=== PATIENT | female | born 1980 | race Hispanic/Latino ===

== ENCOUNTER 2018-02-09 23:33 | Emergency (ER) | payer SELFPAY ==
[~2018-02-09] VITALS: Ht 152.4 cm; Wt 59.0 kg
[~2018-02-09 23:33] MED LIST: AMITRIPTYLINE H25 MG PO; GABAPENTIN100 MG PO; LYRICA50 MG PO; TYLENOL WITH C1 EACH PO; ULTRAM 50MG50 MG PO
== END 2018-02-10 01:36 | disposition left against medical advice (07) ==
LOC: ER 23:33
DX: M26.621 Arthralgia of right temporomandibular joint (principal)

== ENCOUNTER 2021-08-30 10:28 | Emergency (ER) | payer SELFPAY ==
[~2021-08-30] VITALS: Ht 152.4 cm; Wt 59.0 kg
[2021-08-30] MEDS ORDERED: SODIUM CHLORIDE 0.9% 1000ML 1,000 ML IV STA (10:56)
[2021-08-30] MEDS ORDERED: ONDANSETRON HCL INJ 2MG/ML 2ML 2 MG/ML VIAL IV STA (10:56)
[2021-08-30] MEDS ORDERED: Morphine 2mg Syringe 2 MG/ML SYR IV STA (10:56)
[2021-08-30 11:17] LABS: BASOPHILS % 0.4 % (0.0-1.0); EOSINOPHILS # (AUTO) 0.2 (0.0-0.4); EOSINOPHILS % 1.6 % (0.0-6.0); HEMATOCRIT 41.4 % (34.2-44.1); HEMOGLOBIN 13.8 g/dL (12.0-16.0); LYMPHOCYTES # (AUTO) 3.5 (1.0-3.2); LYMPHOCYTES % 30.8 % (18.0-39.1); MEAN CORPUSCULAR HGB CONC 33.3 g/dL (31-35); MONOCYTES # (AUTO) 0.9 (0.2-0.8); MONOCYTES % 7.6 % (4.4-11.3); NEUTROPHILS # (AUTO) 6.7 (2.1-6.9); NEUTROPHILS % 59.3 % (38.7-80.0); PLATELET COUNT 291 x10e3/uL (140-360); RED BLOOD COUNT 4.45 x10e6/uL (3.6-5.1); RED CELL DISTRIBUTION WIDTH 13.9 % (11.7-14.4)
[2021-08-30] MEDS ORDERED: SODIUM CHLORIDE 0.9% 50ML 50 ML ONE (11:23)
[2021-08-30] MEDS ORDERED: IOPAMIDOL 370 MG/ML 200 ML INFUS..BTL INJ ONE (11:23)
[2021-08-30] MEDS ORDERED: DIATRIZOATE MEGL/DIATRIZOA SOD 30 ML BTL PO ONE (11:23)
[2021-08-30 11:45] LABS: INR 0.9
[2021-08-30 11:49] LABS: CLARITY,URINE CLEAR (CLEAR); COLOR,URINE YELLOW (YELLOW); KETONES,URINE NEGATIVE (NEGATIVE); LEUKOCYTE ESTERASE ,URINE NEGATIVE (NEGATIVE); NITRITE,URINE NEGATIVE (NEGATIVE); PROTEIN,URINE DIPSTICK NEGATIVE (NEGATIVE); URINE UROBILINOGEN 0.2 mg/dL (0.2 - 1)
[2021-08-30 11:53] LABS: ALANINE AMINOTRANSFERASE 31 IU/L (0-55); ALBUMIN 4.1 g/dL (3.5-5.0); ALBUMIN/GLOBULIN RATIO 1.2 (0.8-2.0); ALKALINE PHOSPHATASE 73 IU/L (40-150); AMYLASE 82 U/L (25-125); ANION GAP 10.2 mmol/L (8-16); BLOOD UREA NITROGEN 10 mg/dL (7-26); BUN/CREATININE RATIO 15 (6-25); CALCIUM 9.2 mg/dL (8.4-10.2); CARBON DIOXIDE 21 mmol/L (22-29); CHLORIDE 114 mmol/L (98-107); CREATINE KINASE 136 IU/L (29-168); CREATININE, SERUM 0.67 mg/dL (0.57-1.11); EST GLOMERULAR FILTRATION RATE 97 ML/MIN (60-); GLUCOSE 100 mg/dL (74-118); LIPASE 32 U/L (8-78); POTASSIUM 4.2 mmol/L (3.5-5.1); SODIUM 141 mmol/L (136-145)
[2021-08-30 11:59] LABS: BACTERIA,URINE MODERATE /HPF; EPITHELIAL CELLS,URINE MANY /LPF; RBC,URINE 0-5 /HPF (0-5)
[2021-08-30] MEDS ORDERED: Morphine 4mg Syringe 4 MG/ML INJ IV STA (12:51)
[2021-08-30 13:44] LABS: AMPHETAMINES SCREEN,URINE NEGATIVE (NEGATIVE); BENZODIAZEPINES SCREEN,URINE NEGATIVE (NEGATIVE); PHENCYCLIDINE SCREEN,URINE NEGATIVE (NEGATIVE)
== END 2021-08-30 14:19 | disposition home or self-care (01) ==
LOC: ER 10:38
DX: K59.00 Constipation, unspecified (principal); R10.12 Left upper quadrant pain; M06.9 Rheumatoid arthritis, unspecified; Z20.822 Contact with and (suspected) exposure to COVID-19
CPT/HCPCS: 36415; 71045; 74177; 80053; 80307; 81001; 82150; 82550; 82553; 83605; 83690; 84484; 84702; 85025; 85610; 85730; 87040; 87086; 99284; C9113; J2270 ×2; J2405; J7030; Q9967; U0002

== ENCOUNTER 2022-02-08 15:54 | Inpatient (IN) | payer SELFPAY ==
[~2022-02-08] VITALS: Ht 152.4 cm; Wt 59.0 kg
[2022-02-08] MEDS ORDERED: KETOROLAC TROMETHAMINE 30 MG/ML VIAL IV STA (16:34)
[2022-02-08] MEDS ORDERED: ONDANSETRON HCL INJ 2MG/ML 2ML 2 MG/ML VIAL IV STA (16:34)
[2022-02-08] MEDS ORDERED: SODIUM CHLORIDE 0.9% IV SCH (16:45)
[2022-02-08 17:06] LABS: BASOPHILS % 0.1 % (0.0-1.0); HEMATOCRIT 43.9 % (34.2-44.1); HEMOGLOBIN 14.3 g/dL (12.0-16.0); LYMPHOCYTES # (AUTO) 0.9 (1.0-3.2); LYMPHOCYTES % 5.7 % (18.0-39.1); MEAN CORPUSCULAR HEMOGLOBIN 31.1 pg (28-32); MEAN CORPUSCULAR HGB CONC 32.6 g/dL (31-35); MEAN CORPUSCULAR VOLUME 95.4 fL (81-99); MONOCYTES # (AUTO) 1.1 (0.2-0.8); MONOCYTES % 6.7 % (4.4-11.3); NEUTROPHILS # (AUTO) 14.3 (2.1-6.9); NEUTROPHILS % 87.1 % (38.7-80.0); PLATELET COUNT 378 x10e3/uL (140-360); RED CELL DISTRIBUTION WIDTH 14.1 % (11.7-14.4)
[2022-02-08] MEDS ORDERED: CEFTRIAXONE 1 GM VIAL IV ONE (17:15)
[2022-02-08 17:21] LABS: ALANINE AMINOTRANSFERASE 41 IU/L (0-55); ALBUMIN 3.8 g/dL (3.5-5.0); ALBUMIN/GLOBULIN RATIO 0.8 (0.8-2.0); ALKALINE PHOSPHATASE 135 IU/L (40-150); ANION GAP 16.4 mmol/L (8-16); BLOOD UREA NITROGEN 7 mg/dL (7-26); BUN/CREATININE RATIO 9 (6-25); CALCIUM 9.2 mg/dL (8.4-10.2); CARBON DIOXIDE 23 mmol/L (22-29); CHLORIDE 103 mmol/L (98-107); CREATININE, SERUM 0.79 mg/dL (0.57-1.11); GLUCOSE 121 mg/dL (74-118); LIPASE 24 U/L (8-78); POTASSIUM 4.4 mmol/L (3.5-5.1); SODIUM 138 mmol/L (136-145)
[2022-02-08] MEDS ORDERED: SODIUM CHLORIDE 0.9% 1000ML 1,000 ML IV ONE (17:30)
[2022-02-08] MEDS ORDERED: CEFTRIAXONE 1 GM in SODIUM CHLORIDE 0.9% 100 ML IV ONE (17:30)
[2022-02-08 17:53] LABS: BACTERIA,URINE MANY /HPF; EPITHELIAL CELLS,URINE FEW /LPF; RBC,URINE 21-50 /HPF (0-5); WBC,URINE (MAN) >50 /HPF (0-5)
[2022-02-08 17:54] LABS: CLARITY,URINE CLOUDY (CLEAR); COLOR,URINE YELLOW (YELLOW); KETONES,URINE 1+ (NEGATIVE); LEUKOCYTE ESTERASE ,URINE LARGE (NEGATIVE); NITRITE,URINE POSITIVE (NEGATIVE); PROTEIN,URINE DIPSTICK 2+ (NEGATIVE); URINE UROBILINOGEN 0.2 mg/dL (0.2 - 1)
[2022-02-08] MEDS ORDERED: ACETAMINOPHEN 325 MG TAB PO ONE (18:15)
[2022-02-08] MEDS ORDERED: IOPAMIDOL 300MG/ML 100 ML INFUS..BTL IV ONE (18:43)
[2022-02-08] MEDS ORDERED: FENTANYL CITRATE/PF 100MCG/2 ML INJ IV ONE (19:15)
[2022-02-08] MEDS: SODIUM CHLORIDE 0.9% 1000ML 1,000 ML IV SCH (19:23)
[2022-02-08] MEDS ORDERED: ONDANSETRON HCL INJ 2MG/ML 2ML 2 MG/ML VIAL IV PRN (20:30)
[2022-02-08] MEDS ORDERED: Morphine 2mg Syringe 2 MG/ML SYR IV PRN (20:30)
[2022-02-08 23:00] VITALS: BP 126/82
[2022-02-08 23:26] VITALS: BP 126/82
[2022-02-08] MEDS: Morphine 4mg INJECTION 4 MG/ML INJ IV PRN (23:26)
[2022-02-08] MEDS ORDERED: DEXTROSE 50% SYRINGE 50 ML IV PRN (23:45)
[2022-02-08] MEDS ORDERED: BENZONATATE 100 MG CAP PO PRN (23:45)
[2022-02-08] MEDS ORDERED: DOCUSATE SODIUM 100 MG CAP PO PRN (23:45)
[2022-02-08] MEDS ORDERED: HYDRALAZINE HCL 20 MG/ML VIAL IV PRN (23:45)
[2022-02-08] MEDS ORDERED: ALBUTEROL/IPRATROPIUM 3 ML NEB NEB PRN (23:45)
[2022-02-08] MEDS ORDERED: SIMETHICONE 80 MG CHEW PO PRN (23:45)
[2022-02-08] MEDS ORDERED: LIDOCAINE 4% PATCH TP PRN (23:45)
[2022-02-08] MEDS ORDERED: POTASSIUM CHLORIDE 20 MEQ TAB CR PO PRN (23:45)
[2022-02-08] MEDS ORDERED: DIPHENHYDRAMINE HCL 25 MG CAP PO PRN (23:45)
[2022-02-08] MEDS ORDERED: ACETAMINOPHEN 325 MG TAB PO PRN (23:45)
[2022-02-08] MEDS ORDERED: MELATONIN 5 MG TABLET PO PRN (23:45)
[2022-02-08] MEDS: MIDODRINE HCL 5 MG TABLET PO SCH (23:54)
[2022-02-09] VITALS (7 sets, daily range): BP systolic 98–138; BP diastolic 58–91
[2022-02-09] MEDS: KETOROLAC TROMETHAMINE 30 MG/ML VIAL IV PRN ×2 (01:26→08:40)
[2022-02-09] MEDS: ACETAMINOPHEN 325 MG TAB PO PRN ×3 (01:27→18:58)
[2022-02-09] MEDS: SODIUM CHLORIDE 0.9% 1000ML 1,000 ML IV SCH ×3 (03:35→19:41)
[2022-02-09] MEDS: MIDODRINE HCL 5 MG TABLET PO SCH ×3 (05:08→21:15)
[2022-02-09] MEDS: Morphine 4mg INJECTION 4 MG/ML INJ IV PRN ×6 (05:08→23:46)
[2022-02-09 05:14] LABS: BASOPHILS % 0.2 % (0.0-1.0); EOSINOPHILS % 0.1 % (0.0-6.0); HEMATOCRIT 34.1 % (34.2-44.1); HEMOGLOBIN 11.4 g/dL (12.0-16.0); LYMPHOCYTES # (AUTO) 1.6 (1.0-3.2); LYMPHOCYTES % 8.7 % (18.0-39.1); MEAN CORPUSCULAR HEMOGLOBIN 31.1 pg (28-32); MEAN CORPUSCULAR HGB CONC 33.4 g/dL (31-35); MEAN CORPUSCULAR VOLUME 92.9 fL (81-99); MONOCYTES # (AUTO) 2.2 (0.2-0.8); MONOCYTES % 11.7 % (4.4-11.3); NEUTROPHILS # (AUTO) 14.9 (2.1-6.9); NEUTROPHILS % 78.7 % (38.7-80.0); PLATELET COUNT 277 x10e3/uL (140-360); RED BLOOD COUNT 3.67 x10e6/uL (3.6-5.1); RED CELL DISTRIBUTION WIDTH 14.3 % (11.7-14.4)
[2022-02-09 05:31] LABS: ALBUMIN 2.7 g/dL (3.5-5.0); ALBUMIN/GLOBULIN RATIO 0.8 (0.8-2.0); CALCIUM 7.8 mg/dL (8.4-10.2); CREATININE, SERUM 0.71 mg/dL (0.57-1.11)
[2022-02-09] MEDS: PANTOPRAZOLE SOD 40 MG TABEC PO SCH (08:41)
[2022-02-09] MEDS: KETOROLAC TROMETHAMINE 30 MG/ML VIAL IV SCH ×2 (13:25→17:18)
[2022-02-09 14:50] LABS: AMPHETAMINES SCREEN,URINE NEGATIVE (NEGATIVE); PHENCYCLIDINE SCREEN,URINE NEGATIVE (NEGATIVE)
[2022-02-09 14:52] LABS: BENZODIAZEPINES SCREEN,URINE POSITIVE (NEGATIVE)
[2022-02-09] MEDS: ENOXAPARIN SOD INJ 40 MG/0.4 ML SYR SC SCH (16:44)
[2022-02-09] MEDS ORDERED: Vancomycin IV 1 GM in SODIUM CHLORIDE 0.9% 250ML 250 ML IV ONE (17:30)
[2022-02-09] MEDS ORDERED: FLUCONAZOLE 100 MG TAB PO ONE (19:10)
[2022-02-09] MEDS: HYDROCODONE/APAP 5MG-325MG TAB PO PRN (19:41)
[2022-02-10] MEDS: KETOROLAC TROMETHAMINE 30 MG/ML VIAL IV SCH ×2 (00:44→06:00)
[2022-02-10 01:02] VITALS: BP 100/88
[2022-02-10] MEDS: Morphine 4mg INJECTION 4 MG/ML INJ IV PRN ×5 (01:18→14:09)
[2022-02-10] MEDS: SODIUM CHLORIDE 0.9% 1000ML 1,000 ML IV SCH ×2 (03:53→10:39)
[2022-02-10 04:00] VITALS: BP 114/67
[2022-02-10 05:34] LABS: BASOPHILS # (AUTO) 0.1 (0.0-0.1); BASOPHILS % 0.3 % (0.0-1.0); EOSINOPHILS # (AUTO) 0.1 (0.0-0.4); EOSINOPHILS % 0.6 % (0.0-6.0); HEMATOCRIT 33.2 % (34.2-44.1); HEMOGLOBIN 10.9 g/dL (12.0-16.0); LYMPHOCYTES % 11.7 % (18.0-39.1); MEAN CORPUSCULAR HEMOGLOBIN 30.6 pg (28-32); MEAN CORPUSCULAR HGB CONC 32.8 g/dL (31-35); MEAN CORPUSCULAR VOLUME 93.3 fL (81-99); MONOCYTES # (AUTO) 1.9 (0.2-0.8); MONOCYTES % 10.9 % (4.4-11.3); NEUTROPHILS % 75.7 % (38.7-80.0); PLATELET COUNT 232 x10e3/uL (140-360); RED BLOOD COUNT 3.56 x10e6/uL (3.6-5.1); RED CELL DISTRIBUTION WIDTH 14.3 % (11.7-14.4)
[2022-02-10] MEDS: MIDODRINE HCL 5 MG TABLET PO SCH ×3 (05:56→22:00)
[2022-02-10 06:01] LABS: ANION GAP 12.8 mmol/L (8-16); CALCIUM 7.7 mg/dL (8.4-10.2); CREATININE, SERUM 0.59 mg/dL (0.57-1.11); POTASSIUM 3.8 mmol/L (3.5-5.1)
[2022-02-10] MEDS: PANTOPRAZOLE SOD 40 MG TABEC PO SCH (08:40)
[2022-02-10] MEDS: HYDROCODONE/APAP 5MG-325MG TAB PO PRN (08:40)
[2022-02-10 09:00] VITALS: BP 152/97
[2022-02-10] MEDS: ACETAMINOPHEN 325 MG TAB PO PRN (10:11)
[2022-02-10] MEDS ORDERED: ONDANSETRON HCL 4 MG ORAL DISINTEGRATING TAB PO PRN (11:15)
[2022-02-10 11:40] VITALS: BP 112/63
[2022-02-10] MEDS ORDERED: PHENAZOPYRIDINE HCL 100 MG TAB PO PRN (12:45)
[2022-02-10] MEDS: CEFTRIAXONE 2 GM in SODIUM CHLORIDE 0.9% 100 ML IV SCH (13:00)
[2022-02-10 16:29] VITALS: BP 105/66
[2022-02-10] MEDS: ENOXAPARIN SOD INJ 40 MG/0.4 ML SYR SC SCH (16:35)
[2022-02-10] MEDS: Morphine 2mg Syringe 2 MG/ML SYR IV PRN ×2 (18:15→22:31)
[2022-02-10 20:00] VITALS: BP 142/84
[2022-02-11] VITALS (7 sets, daily range): BP systolic 119–146; BP diastolic 69–81
[2022-02-11] MEDS: Morphine 2mg Syringe 2 MG/ML SYR IV PRN ×5 (04:09→22:11)
[2022-02-11] MEDS: SODIUM CHLORIDE 0.9% 1000ML 1,000 ML IV SCH ×2 (04:09→06:42)
[2022-02-11 05:37] LABS: BASOPHILS % 0.2 % (0.0-1.0); EOSINOPHILS # (AUTO) 0.1 (0.0-0.4); EOSINOPHILS % 0.7 % (0.0-6.0); HEMATOCRIT 31.3 % (34.2-44.1); HEMOGLOBIN 10.2 g/dL (12.0-16.0); LYMPHOCYTES % 18.8 % (18.0-39.1); MEAN CORPUSCULAR HEMOGLOBIN 31.1 pg (28-32); MEAN CORPUSCULAR HGB CONC 32.6 g/dL (31-35); MEAN CORPUSCULAR VOLUME 95.4 fL (81-99); MONOCYTES # (AUTO) 1.3 (0.2-0.8); MONOCYTES % 11.7 % (4.4-11.3); NEUTROPHILS # (AUTO) 7.3 (2.1-6.9); NEUTROPHILS % 68.4 % (38.7-80.0); PLATELET COUNT 196 x10e3/uL (140-360); RED BLOOD COUNT 3.28 x10e6/uL (3.6-5.1); RED CELL DISTRIBUTION WIDTH 14.2 % (11.7-14.4)
[2022-02-11] MEDS: MIDODRINE HCL 5 MG TABLET PO SCH ×3 (06:00→22:11)
[2022-02-11 06:01] LABS: ANION GAP 13.8 mmol/L (8-16); CALCIUM 7.7 mg/dL (8.4-10.2); CREATININE, SERUM 0.55 mg/dL (0.57-1.11); POTASSIUM 3.8 mmol/L (3.5-5.1)
[2022-02-11] MEDS: PANTOPRAZOLE SOD 40 MG TABEC PO SCH (06:42)
[2022-02-11] MEDS: CEFTRIAXONE 2 GM in SODIUM CHLORIDE 0.9% 100 ML IV SCH (13:33)
[2022-02-11] MEDS: ENOXAPARIN SOD INJ 40 MG/0.4 ML SYR SC SCH (16:48)
[2022-02-12] VITALS: BP 144/81
[2022-02-12] MEDS: Morphine 2mg Syringe 2 MG/ML SYR IV PRN ×3 (02:15→10:40)
[2022-02-12 04:00] VITALS: BP 121/99
[2022-02-12] MEDS: MIDODRINE HCL 5 MG TABLET PO SCH ×2 (06:24→13:20)
[2022-02-12 07:57] VITALS: BP 145/67
[2022-02-12 08:05] VITALS: BP 145/67
[2022-02-12] MEDS: PANTOPRAZOLE SOD 40 MG TABEC PO SCH (09:03)
[2022-02-12 11:56] VITALS: BP 135/82
[2022-02-12] MEDS: CEFTRIAXONE 2 GM in SODIUM CHLORIDE 0.9% 100 ML IV SCH (13:00)
== END 2022-02-12 15:07 | disposition home or self-care (01) | DRG 871 ==
LOC: ER 16:07 → ERHOLD 21:05 → MED/SURG2 23:00
PROVIDERS: ADMIT Internal Medicine; ATTEND Internal Medicine
DX: A41.9 Sepsis, unspecified organism (principal); J12.82 Pneumonia due to coronavirus disease 2019; U07.1 COVID-19; N10 Acute pyelonephritis; B96.20 Unspecified Escherichia coli [E. coli] as the cause of diseases classified elsewhere; F11.90 Opioid use, unspecified, uncomplicated; F19.90 Other psychoactive substance use, unspecified, uncomplicated; Z90.49 Acquired absence of other specified parts of digestive tract
CPT/HCPCS: 36415; 74176; 74177; 76770; 80048; 80053; 80307; 81001; 83605; 83690; 83735; 84702; 85025; 87040; 87086; 87186; 94799; 96360; 99284; J0696; J1650; J1885; J2185; J2270; J2405; J3010; J3370; J7030; J7050; Q0162; Q9967

== ENCOUNTER 2022-10-23 19:00 | Emergency (ER) | payer SELFPAY ==
[~2022-10-23] VITALS: Ht 152.4 cm; Wt 61.2 kg
[2022-10-23] MEDS ORDERED: ONDANSETRON HCL INJ 2MG/ML 2ML 2 MG/ML VIAL IV STA (19:09)
[2022-10-23] MEDS ORDERED: Morphine 4mg INJECTION 4 MG/ML INJ IV STA (19:09)
[2022-10-23] MEDS ORDERED: SODIUM CHLORIDE 0.9% 1000ML 1,000 ML IV STA (19:09)
[2022-10-23 19:25] LABS: BASOPHILS % 0.3 % (0.0-1.0); EOSINOPHILS # (AUTO) 0.1 (0.0-0.4); EOSINOPHILS % 0.9 % (0.0-6.0); HEMATOCRIT 46.7 % (34.2-44.1); HEMOGLOBIN 15.4 g/dL (12.0-16.0); LYMPHOCYTES # (AUTO) 2.3 (1.0-3.2); LYMPHOCYTES % 25.6 % (18.0-39.1); MEAN CORPUSCULAR HEMOGLOBIN 30.6 pg (28-32); MEAN CORPUSCULAR VOLUME 92.7 fL (81-99); MONOCYTES # (AUTO) 0.6 (0.2-0.8); MONOCYTES % 6.7 % (4.4-11.3); NEUTROPHILS # (AUTO) 5.9 (2.1-6.9); NEUTROPHILS % 66.3 % (38.7-80.0); PLATELET COUNT 292 x10e3/uL (140-360); RED BLOOD COUNT 5.04 x10e6/uL (3.6-5.1); RED CELL DISTRIBUTION WIDTH 13.8 % (11.7-14.4)
[2022-10-23 19:57] LABS: ALBUMIN 4.2 g/dL (3.5-5.0); ALBUMIN/GLOBULIN RATIO 1.2 (0.8-2.0); ANION GAP 14.9 mmol/L (8-16); CALCIUM 9.5 mg/dL (8.4-10.2); CREATININE, SERUM 0.91 mg/dL (0.57-1.11); POTASSIUM 4.9 mmol/L (3.5-5.1)
[2022-10-23 19:58] LABS: CLARITY,URINE CLEAR (CLEAR); COLOR,URINE YELLOW (YELLOW); KETONES,URINE NEGATIVE (NEGATIVE); LEUKOCYTE ESTERASE ,URINE NEGATIVE (NEGATIVE); NITRITE,URINE NEGATIVE (NEGATIVE); PROTEIN,URINE DIPSTICK NEGATIVE (NEGATIVE); URINE UROBILINOGEN 0.2 mg/dL (0.2 - 1)
[2022-10-23 19:59] LABS: AMPHETAMINES SCREEN,URINE NEGATIVE (NEGATIVE); BENZODIAZEPINES SCREEN,URINE NEGATIVE (NEGATIVE); PHENCYCLIDINE SCREEN,URINE NEGATIVE (NEGATIVE)
[2022-10-23] MEDS ORDERED: ULTRAM 50MG50 MG PO (20:06)
[2022-10-23] MEDS ORDERED: VITAMIN D250 MC1 PO (20:07)
[2022-10-23 20:08] LABS: BACTERIA,URINE MANY /HPF; EPITHELIAL CELLS,URINE MANY /LPF; MUCUS,URINE FEW (RARE); RBC,URINE 0-5 /HPF (0-5); WBC,URINE (MAN) 0-5 /HPF (0-5)
[2022-10-23] MEDS ORDERED: IOPAMIDOL 370 MG/ML 100 ML INFUS..BTL INJ ONE (20:27)
[2022-10-23] MEDS ORDERED: KETOROLAC TROMETHAMINE 30 MG/ML VIAL IV STA (20:33)
[2022-10-23] MEDS ORDERED: DICYCLOMINE HCL 20 MG/2 ML VIAL IM ONE (21:45)
[2022-10-23] MEDS ORDERED: FLEET ENEMA133 ML PR (21:48)
[2022-10-23] MEDS ORDERED: GOLYTELY SOLU4000 M1 PO (21:48)
[2022-10-23 21:49] VITALS: BP 122/81
== END 2022-10-23 22:02 | disposition home or self-care (01) ==
LOC: ER 19:05
DX: R10.84 Generalized abdominal pain (principal); K59.00 Constipation, unspecified; R11.2 Nausea with vomiting, unspecified
CPT/HCPCS: 36415; 74177; 80053; 80307; 81001; 81025; 85025; 99284; J0500; J1885; J2270; J2405; J7030; Q9967

== ENCOUNTER 2022-11-08 05:23 | Emergency (ER) | payer SELFPAY ==
[~2022-11-08] VITALS: Ht 152.4 cm; Wt 56.2 kg
[~2022-11-08 05:23] MED LIST changes: +FLEET ENEMA133 ML PR; +GOLYTELY SOLU4000 M1 PO; +VITAMIN D250 MC1 PO
[2022-11-08] MEDS ORDERED: DIPHENHYDRAMINE HCL INJ 50 MG/ML VIAL IV STA (05:38)
[2022-11-08] MEDS ORDERED: METOCLOPRAMIDE HCL 10 MG/2ML VIAL IV STA (05:38)
[2022-11-08] MEDS ORDERED: KETOROLAC TROMETHAMINE 30 MG/ML VIAL IV STA (05:38)
[2022-11-08] MEDS ORDERED: SODIUM CHLORIDE 0.9% 1000ML 1,000 ML IV STA (05:38)
[2022-11-08] MEDS ORDERED: METHYLPREDNISOLONE SOD SUCC 125 MG/2ML VIAL IV STA (05:38)
[2022-11-08 05:54] LABS: BASOPHILS % 0.2 % (0.0-1.0); EOSINOPHILS # (AUTO) 0.2 (0.0-0.4); EOSINOPHILS % 1.9 % (0.0-6.0); HEMATOCRIT 43.9 % (34.2-44.1); HEMOGLOBIN 14.3 g/dL (12.0-16.0); LYMPHOCYTES # (AUTO) 3.2 (1.0-3.2); LYMPHOCYTES % 35.1 % (18.0-39.1); MEAN CORPUSCULAR HGB CONC 32.6 g/dL (31-35); MONOCYTES # (AUTO) 0.7 (0.2-0.8); MONOCYTES % 7.6 % (4.4-11.3); NEUTROPHILS % 55.1 % (38.7-80.0); PLATELET COUNT 237 x10e3/uL (140-360); RED BLOOD COUNT 4.62 x10e6/uL (3.6-5.1)
[2022-11-08 06:17] LABS: ALBUMIN 4.3 g/dL (3.5-5.0); ALBUMIN/GLOBULIN RATIO 1.3 (0.8-2.0); ANION GAP 11.1 mmol/L (8-16); CALCIUM 9.1 mg/dL (8.4-10.2); CREATININE, SERUM 0.76 mg/dL (0.57-1.11); POTASSIUM 4.1 mmol/L (3.5-5.1)
[2022-11-08 08:04] VITALS: BP 145/96; PULSE 83; RESP 16; TEMP 98.1; O2SAT 100
== END 2022-11-08 07:50 | disposition home or self-care (01) ==
LOC: ER 05:39
DX: R51.9 Headache, unspecified (principal); M06.9 Rheumatoid arthritis, unspecified; R11.0 Nausea
CPT/HCPCS: 36415; 70450; 80053; 84702; 85025; 99284; J1200; J1885; J2765; J2930; J7030

== ENCOUNTER 2023-07-16 20:38 | Emergency (ER) | payer SELFPAY ==
[~2023-07-16] VITALS: Ht 152.4 cm; Wt 56.2 kg
[2023-07-16] MEDS ORDERED: KETOROLAC TROMETHAMINE 60 MG/2 ML VIAL IM STA (20:41)
[2023-07-16 22:23] VITALS: O2SAT 100
[2023-07-16] MEDS ORDERED: PREDNISONE20 MG PO (22:23)
[2023-07-16] MEDS ORDERED: ULTRAM 50MG50 MG PO (22:23)
== END 2023-07-16 22:30 | disposition home or self-care (01) ==
LOC: ER 20:41
DX: M25.522 Pain in left elbow (principal); M77.12 Lateral epicondylitis, left elbow; M06.9 Rheumatoid arthritis, unspecified
CPT/HCPCS: 73080; 73110; 93005; 99283; J1885

== ENCOUNTER 2024-06-25 15:06 | Observation (INO) | payer SELFPAY ==
[~2024-06-25] VITALS: Ht 152.4 cm; Wt 56.2 kg
[~2024-06-25 15:06] MED LIST changes: +PREDNISONE20 MG PO
[2024-06-25 16:08] LABS: BASOPHILS # (AUTO) 0.1 (0.0-0.1); BASOPHILS % 0.4 % (0.0-1.0); EOSINOPHILS % 0.2 % (0.0-6.0); HEMATOCRIT 41.1 % (34.2-44.1); HEMOGLOBIN 13.3 g/dL (12.0-16.0); LYMPHOCYTES # (AUTO) 2.5 (1.0-3.2); LYMPHOCYTES % 19.9 % (18.0-39.1); MEAN CORPUSCULAR HEMOGLOBIN 30.4 pg (28-32); MEAN CORPUSCULAR HGB CONC 32.4 g/dL (31-35); MEAN CORPUSCULAR VOLUME 94.1 fL (81-99); MONOCYTES # (AUTO) 0.6 (0.2-0.8); MONOCYTES % 5.2 % (4.4-11.3); NEUTROPHILS # (AUTO) 9.2 (2.1-6.9); NEUTROPHILS % 74.1 % (38.7-80.0); PLATELET COUNT 339 x10e3/uL (140-360); RED BLOOD COUNT 4.37 x10e6/uL (3.6-5.1); RED CELL DISTRIBUTION WIDTH 15.8 % (11.7-14.4); WHITE BLOOD COUNT 12.42 x10e3/uL (4.8-10.8)
[2024-06-25 16:12] LABS: INR 0.85; PROTHROMBIN TIME 12.1 seconds (11.9-14.5)
[2024-06-25 16:13] LABS: PARTIAL THROMBOPLASTIN TIME 26.1 seconds (23.8-35.5)
[2024-06-25] MEDS: SODIUM CHLORIDE 0.9% 1000ML 1,000 ML IV STA ×2 (16:18→18:45)
[2024-06-25] MEDS: LORAZEPAM INJ 2 MG/ML VIAL IV ONE ×2 (16:18→20:23)
[2024-06-25 16:22] LABS: ALANINE AMINOTRANSFERASE 28 IU/L (0-55); ALBUMIN 3.9 g/dL (3.5-5.0); ALBUMIN/GLOBULIN RATIO 1.1 (0.8-2.0); ALKALINE PHOSPHATASE 89 IU/L (40-150); AMPHETAMINES SCREEN,URINE NEGATIVE (NEGATIVE); ANION GAP 14.4 mmol/L (8-16); BENZODIAZEPINES SCREEN,URINE NEGATIVE (NEGATIVE); BILIRUBIN,TOTAL 0.2 mg/dL (0.2-1.2); BLOOD UREA NITROGEN < 5 mg/dL (7-26); CALCIUM 9.1 mg/dL (8.4-10.2); CANNABINOIDS SCREEN,URINE NEGATIVE (NEGATIVE); CARBON DIOXIDE 22 mmol/L (22-29); CHLORIDE 108 mmol/L (98-107); CLARITY,URINE CLEAR (CLEAR); COCAINE SCREEN,URINE NEGATIVE (NEGATIVE); COLOR,URINE COLORLESS (YELLOW); CREATINE KINASE 274 IU/L (29-168); CREATININE, SERUM 1.36 mg/dL (0.57-1.11); EST GLOMERULAR FILTRATION RATE 50 ML/MIN (>=60); GLUCOSE 118 mg/dL (74-118); LEUKOCYTE ESTERASE ,URINE NEGATIVE (NEGATIVE); MAGNESIUM 2.1 MG/DL (1.3-2.1); METHADONE SCREEN, URINE NEGATIVE (NEGATIVE); OPIATES SCREEN,URINE NEGATIVE (NEGATIVE); PH,URINE 7 (5 - 7); PHENCYCLIDINE SCREEN,URINE NEGATIVE (NEGATIVE); SODIUM 141 mmol/L (136-145); TOTAL PROTEIN 7.6 g/dL (6.5-8.1)
[2024-06-25 16:23] LABS: BILIRUBIN,URINE NEGATIVE (NEGATIVE); BUN/CREATININE RATIO 4 (6-25); GLUCOSE, URINE NEGATIVE (NEGATIVE); KETONES,URINE NEGATIVE (NEGATIVE); NITRITE,URINE NEGATIVE (NEGATIVE); POTASSIUM 3.4 mmol/L (3.5-5.1); PROTEIN,URINE DIPSTICK NEGATIVE (NEGATIVE); URINE UROBILINOGEN 0.2 mg/dL (0.2 - 1)
[2024-06-25 16:27] LABS: ETHANOL < 10.0 mg/dL (0.0-10.0); SALICYLATE < 5.0 mg/dL (0-30)
[2024-06-25 16:30] LABS: TROPONIN I < 0.001 ng/mL (0-0.300)
[2024-06-25 16:32] LABS: BACTERIA,URINE MODERATE /HPF; EPITHELIAL CELLS,URINE MODERATE /LPF
[2024-06-25] MEDS ORDERED: ZIPRASIDONE 20 MG VIAL IM STA (16:37)
[2024-06-25 16:53] LABS: LIPASE 95 U/L (8-78)
[2024-06-25] MEDS ORDERED: IOPAMIDOL 370 MG/ML 100 ML INFUS..BTL INJ ONE (17:19)
[2024-06-25] MEDS ORDERED: SODIUM CHLORIDE 0.9% 100 ML ONE (17:19)
[2024-06-25] MEDS: NICOTINE 21 MG/EA PATCH TOP ONE (19:42)
[2024-06-25] MEDS ORDERED: ONDANSETRON HCL INJ 2MG/ML 2ML 2 MG/ML VIAL IV PRN (19:45)
[2024-06-25] MEDS: SODIUM CHLORIDE 0.9% 1000ML 1,000 ML IV SCH (21:19)
[2024-06-25 21:58] LABS: ALANINE AMINOTRANSFERASE 25 IU/L (0-55); ALBUMIN 3.4 g/dL (3.5-5.0); ALBUMIN/GLOBULIN RATIO 1.1 (0.8-2.0); ALKALINE PHOSPHATASE 79 IU/L (40-150); ANION GAP 13.4 mmol/L (8-16); BILIRUBIN,TOTAL 0.2 mg/dL (0.2-1.2); BLOOD UREA NITROGEN < 5 mg/dL (7-26); CALCIUM 8.3 mg/dL (8.4-10.2); CARBON DIOXIDE 19 mmol/L (22-29); CHLORIDE 116 mmol/L (98-107); CREATININE, SERUM 1.52 mg/dL (0.57-1.11); EST GLOMERULAR FILTRATION RATE 43 ML/MIN (>=60); GLUCOSE 97 mg/dL (74-118); SODIUM 145 mmol/L (136-145); TOTAL PROTEIN 6.4 g/dL (6.5-8.1)
[2024-06-25 21:59] LABS: BUN/CREATININE RATIO 3 (6-25); POTASSIUM 3.4 mmol/L (3.5-5.1)
[2024-06-25] MEDS ORDERED: QUETIAPINE FUMARATE 25 MG TAB PO PRN (22:30)
[2024-06-26] MEDS ORDERED: DIPHENHYDRAMINE HCL 25 MG CAP PO PRN
[2024-06-26] MEDS ORDERED: ACETAMINOPHEN 325 MG TAB PO PRN
[2024-06-26] MEDS ORDERED: BENZONATATE 100 MG CAP PO PRN
[2024-06-26] MEDS ORDERED: MELATONIN 5 MG TABLET PO PRN
[2024-06-26] MEDS ORDERED: POTASSIUM CHLORIDE 20 MEQ TAB CR PO PRN
[2024-06-26] MEDS ORDERED: DOCUSATE SODIUM 100 MG CAP PO PRN
[2024-06-26] MEDS ORDERED: ALBUTEROL/IPRATROPIUM 3 ML NEB NEB PRN
[2024-06-26] MEDS ORDERED: HYDRALAZINE HCL 20 MG/ML VIAL IV PRN
[2024-06-26] MEDS ORDERED: LIDOCAINE 4% PATCH TP PRN
[2024-06-26] MEDS ORDERED: SIMETHICONE 80 MG CHEW PO PRN
[2024-06-26] MEDS ORDERED: DEXTROSE 50% SYRINGE 50 ML IV PRN
[2024-06-26 00:42] LABS: TROPONIN I 0.005 ng/mL (0-0.300)
[2024-06-26] MEDS: HYDROXYZINE HCL 25 MG TAB PO PRN (00:47)
[2024-06-26 03:40] VITALS: PULSE 100; RESP 17; TEMP 98.5
[2024-06-26 03:50] VITALS: BP 155/101; PULSE 100; RESP 17; TEMP 98.5; O2SAT 98
[2024-06-26] MEDS ORDERED: PANTOPRAZOLE SOD 40 MG TABEC PO SCH (07:30)
[2024-06-26] MEDS ORDERED: ENOXAPARIN SOD INJ 40 MG/0.4 ML SYR SC SCH (17:00)
== END 2024-06-26 03:49 | disposition left against medical advice (07) ==
LOC: ER 15:32 → ERHOLD 19:36
PROVIDERS: ADMIT Internal Medicine; ATTEND Internal Medicine
DX: G93.41 Metabolic encephalopathy (principal); N17.9 Acute kidney failure, unspecified; F41.9 Anxiety disorder, unspecified
CPT/HCPCS: 36415; 70450; 71045; 74174; 80053; 80307; 80320; 80329 ×2; 81001; 82550; 82948; 83690; 83735; 83930; 84484; 84702; 85025; 85610; 85730; 87086; 93005; 99285; G0378 ×2; J2060; J2470; J3410; J7030; J7050; Q9967